=== PATIENT | female | born 1970 | race Caucasian/White ===

== ENCOUNTER 2019-11-22 08:09 | Day surgery (SDC) | payer MEDICAID, SELFPAY ==
--- NOTE | 2019-11-22 08:40 | NUR ---
PRE-PROCEDURE RECEIVED TO DAY 3 FOR SCHEDULED LIVER BIOPSY. AWAKE IN NO ACUTE DISTRESS. DENIES PAIN. SIDE RAILS UP X2, STRETCHER IN LOWEST POSITION, AND CALL LIGHT W/IN REACH.
[2019-11-22 08:51] LABS: BASOPHILS % (AUTO) 0.4 % (0.0-5.0); EOSINOPHILS % (AUTO) 0.6 % (0.0-8.0); HEMATOCRIT 48.2 % (36-48); LYMPHOCYTES % (AUTO) 34.7 % (21.0-51.0); MEAN CORPUSCULAR HGB CONC 33.6 g/dL (32.0-36.0); MEAN CORPUSCULAR VOLUME 92.2 fL (79-99); NEUTROPHILS % (AUTO) 57.9 % (40.0-77.0); PLATELET COUNT (AUTO) 192 K/uL (130-400); RED BLOOD CELL COUNT(AUTO) 5.23 MIL/uL (4.00-5.50); RED CELL DISTRIBUTION WIDTH 13.2 % (11.0-15.5)
[2019-11-22 08:59] LABS: INR 0.93 (0.85-1.15); PARTIAL THROMBOPLASTIN TIME 25.5 SEC (26.3-35.5); PROTHROMBIN TIME 10.1 SEC (9.6-11.6)
[2019-11-22 09:03] LABS: ALBUMIN 3.2 g/dL (3.5-5.0); BILIRUBIN,TOTAL 0.4 mg/dL (0.2-1.0); CREATININE 0.9 mg/dL (0.5-1.5); POTASSIUM 4.5 mmol/L (3.5-5.1); TOTAL PROTEIN, SERUM 7.6 g/dL (6.0-8.3)
--- NOTE | 2019-11-22 09:10 | NUR ---
BLOOD SUGAR SPOKE WITH ROSE METCALF REGARDING BLOOD SUGAR 337. STATES HE WILL TEXT DR. VALDEZ
[2019-11-22] MEDS ORDERED: FENTANYL CITRATE PF 50 MCG/1 ML 2ML VIAL ONE (10:10)
[2019-11-22] MEDS ORDERED: MIDAZOLAM HCL 1 MG/ML 2ML VIAL ONE (10:11)
--- NOTE | 2019-11-22 10:15 | NUR ---
PROCEDURE TRANSFERRED TO RADIOLOGY FOR IR PROCEDURE BY ROSE METCALF.
--- NOTE | 2019-11-22 10:55 | NUR ---
U/S GD LIVER BX PROCEDURE PERFORMED BY DR Jose BISWAS. PUNCTURE SITE RUQ AND PATIENT TOLERATED PROCEDURE WELL. SPECIMEN X 3 COLLECTED AND SENT TO LAB. END OF PROCEDURE AT 1045. FLOSEAL INJECTED TO BIOPSY SITE AND BIOPSY NEEDLE REMOVED. DRESSING APPLIED WITH NO BLEEDING NOTED. REPORT GIVEN TO Jose HINTON RN AND PATIENT TRANSPORTED TO DAY PATIENT ROOM 3 VIA STRETCHER AT 1055. AAO X3 WITH NO C/O PAIN.
--- NOTE | 2019-11-22 10:57 | NUR ---
POST-PROCEDURE RECEIVED FROM IR S/P LIVER BIOPSY VIA STRETCHER BY ROSE METCALF. AWAKE IN NO ACUTE DISTRESS. CONNECTED TO CONTINUOUS CARDIOPULMONARY MONITORING. BIOPSY SITE TO RUQ WITH BAND AIDE CD&I. DENIES PAIN. SIDE RAILS UP X2, STRETCHER IN LOWEST POSITION, AND CALL LIGHT W/IN REACH.
--- NOTE | 2019-11-22 11:30 | NUR ---
DRESSING BAND AIDE TO RUQ CD&I. SITE SOFT.
--- NOTE | 2019-11-22 11:45 | NUR ---
DRESSING BAND AIDE TO RUQ CD&I. SITE SOFT.
--- NOTE | 2019-11-22 12:15 | NUR ---
DRESSING BAND AIDE TO RUQ CD&I. SITE SOFT.
--- NOTE | 2019-11-22 12:45 | NUR ---
IV IV DC'D INTACT TO RIGHT HAND. SITE W/O ERYTHEMA OR EDEMA.
--- NOTE | 2019-11-22 12:45 | NUR ---
DRESSING BAND AIDE TO RUQ CD&I. SITE SOFT.
--- NOTE | 2019-11-22 12:50 | NUR ---
DISCHARGE DISCHARGE INSTRUCTIONS REVIEWED WITH ARNOLD MORGAN/DAUGHTER AND PT INCLUDING PT SUMMARY, DIET, CONTINUE HOME MEDS, KEEP DRESSING CLEAN, DRY, AND INTACT FOR 24 HOURS, AND TO NOTIFY MD FOR SEVERE PAIN, BLEEDING, SWELLING, OR ERYTHEMA TO SITE. BOTH VERBALIZED UNDERSTANDING. OPPORTUNITY GIVEN TO ASK QUESTIONS. NO QUESTIONS OR CONCERNS VOICED.
--- NOTE | 2019-11-22 12:55 | NUR ---
DISCHARGE DISCHARGED VIA W/C. AWAKE IN NO ACUTE DISTRESS.
== END 2019-11-22 12:50 | disposition home or self-care (01) ==
LOC: RAH 08:09
PROVIDERS: ATTEND Internal Medicine Gastroenterology
DX: K74.3 Primary biliary cirrhosis (principal); R94.5 Abnormal results of liver function studies; R14.0 Abdominal distension (gaseous); D12.6 Benign neoplasm of colon, unspecified; Z80.0 Family history of malignant neoplasm of digestive organs; E11.9 Type 2 diabetes mellitus without complications; E78.2 Mixed hyperlipidemia; F41.9 Anxiety disorder, unspecified; F32.9 Major depressive disorder, single episode, unspecified; I10 Essential (primary) hypertension; Z90.710 Acquired absence of both cervix and uterus
CPT/HCPCS: 36415; 47000; 76942; 80053; 82948; 85025; 85610; 85730; 88307; 88313; 88341; 88342; A4215; A4216; A4221; A4222; A4223 ×3; A4606; A4663; C2615; J2250; J3010; 99152; 99153

== ENCOUNTER → 2021-12-03 | Outpatient (CLI) | payer MEDICAID | END | disposition home or self-care (01) | LOC: RAH 09:16 | PROVIDERS: ATTEND Internal Medicine Gastroenterology | DX: K74.3 Primary biliary cirrhosis (principal); Z90.49 Acquired absence of other specified parts of digestive tract | CPT/HCPCS: 76700 ==